=== PATIENT | female | born 1960 | race American Indian/Alaskan Native ===

== ENCOUNTER 2017-06-28 10:46 | Emergency (ER) | payer SELFPAY ==
[2017-06-28] MEDS ORDERED: DUONEB *Not for PRN Use IH ONE (11:08)
--- NOTE | 2017-06-28 11:54 | XRay Report ---
CHEST 2 VIEWS INDICATION: Cough, wheezing. COMPARISON: None similar at this institution. FINDINGS: PA and lateral chest radiographs demonstrate normal cardiomediastinal silhouette. Well-expanded lungs without pleural effusions or CHF. Slight right lower lung haziness felt related to overlying breast shadow. Intact bones. CONCLUSION: No acute disease in the chest. Thank you for the opportunity to participate in this patient's care.
[2017-06-28] MEDS ORDERED: TESSALON PERLES PO ONE (12:31)
[2017-06-28] MEDS ORDERED: ZESTRIL PO ONE (12:51)
--- NOTE | 2017-06-28 12:57 | Emergency Department Report ---
- General Chief Complaint: Upper Respiratory Infection Stated Complaint: COUGHING, WHEEZING Time Seen by Provider: 06/28/17 11:25 Source: patient Mode of arrival: Ambulatory Limitations: No Limitations - History of Present Illness Initial Comments: This is a 56-year-old female nontoxic, well nourished in appearance, no acute signs of distress presents to the ED with c/o of productive cough, wheezing, and rhinorrhea x1 week. Patient describers productive cough as green mucus production. She denies any sick contacts. Patient also states she has subjective fever but has not taken temperature. Patient denies any nausea, vomiting, chills, chest pain, shortness of breath, difficult breathing, numbness , tingling, headache, stiff neck or abdominal pain. Patient also states she has history of hypertension that she is out of her medication and has not had time to follow-up with her primary care doctor. Patient states she is requested for the lisinopril refill 20 mg daily. Patient also has a history of asthma and bronchitis. Patient states allergies to ibuprofen. MD Complaint: cough, rhinorrhea, nasal congestion, other (wheezing) -: week(s) (1) Severity: mild Severity scale (0 -10): 0 Consistency: constant Improves With: nothing Worsens With: nothing Associated Symptoms: fever, rhinorrhea, nasal congestion, cough. denies: chills , myalgias, diaphoresis, headache, sore throat, stiff neck, chest pain, shortness of breath, abdominal pain, nausea, vomiting, diarrhea, dysuria, rash, confusion, right sweats, weight loss, epistaxis, hoarseness, ear pain Treatments Prior to Arrival: none - Related Data Previous Rx's Medication Instructions Recorded Last Taken Type ALBUTEROL Inhaler [ProAir HFA 2 puff IH QID PRN #1 inhalation 06/28/17 Unknown Rx Inhaler] Azithromycin [Zithromax Z-RIVAS] 250 mg PO DAILY #6 tablet 06/28/17 Unknown Rx Benzonatate [Tessalon Perle] 100 mg PO Q8H #15 capsule 06/28/17 Unknown Rx Lisinopril 40 mg PO DAILY #5 tablet 06/28/17 Unknown Rx predniSONE [Deltasone] 40 mg PO QDAY #5 tab 06/28/17 Unknown Rx Allergies Allergy/AdvReac Type Severity Reaction Status Date / Time ibuprofen Allergy Bleeding Verified 06/28/17 10:52 ED Review of Systems ROS: Stated complaint: COUGHING, WHEEZING Other details as noted in HPI Constitutional: denies: chills, fever Eyes: denies: eye pain, eye discharge, vision change ENT: denies: ear pain, throat pain Respiratory: cough, wheezing. denies: shortness of breath Cardiovascular: denies: chest pain, palpitations Endocrine: no symptoms reported Gastrointestinal: denies: abdominal pain, nausea, diarrhea Genitourinary: denies: urgency, dysuria, discharge Musculoskeletal: denies: back pain, joint swelling, arthralgia Skin: denies: rash, lesions Neurological: denies: headache, weakness, paresthesias Psychiatric: denies: anxiety, depression Hematological/Lymphatic: denies: easy bleeding, easy bruising ED Past Medical Hx - Past Medical History Hx Hypertension: Yes Hx Asthma: Yes (BRONCHITIS) - Surgical History Hx Cholecystectomy: Yes - Social History Smoking Status: Never Smoker Substance Use Type: None - Medications Home Medications: Home Medications Medication Instructions Recorded Confirmed Last Taken Type ALBUTEROL Inhaler [ProAir HFA 2 puff IH QID PRN #1 inhalation 06/28/17 Unknown Rx Inhaler] Azithromycin [Zithromax Z-RIVAS] 250 mg PO DAILY #6 tablet 06/28/17 Unknown Rx Benzonatate [Tessalon Perle] 100 mg PO Q8H #15 capsule 06/28/17 Unknown Rx Lisinopril 40 mg PO DAILY #5 tablet 06/28/17 Unknown Rx predniSONE [Deltasone] 40 mg PO QDAY #5 tab 06/28/17 Unknown Rx ED Physical Exam - General Limitations: No Limitations General appearance: alert, in no apparent distress - Head Head exam: Present: atraumatic, normocephalic, normal inspection - Eye Eye exam: Present: normal appearance, PERRL, EOMI. Absent: scleral icterus, conjunctival injection, nystagmus, periorbital swelling, periorbital tenderness Pupils: Present: normal accommodation - ENT ENT exam: Present: normal exam, normal orophraynx, mucous membranes moist, TM's normal bilaterally, normal external ear exam - Neck Neck exam: Present: normal inspection, full ROM. Absent: tenderness, meningismus, lymphadenopathy, thyromegaly - Respiratory Respiratory exam: Present: normal lung sounds bilaterally, wheezes. Absent: respiratory distress, rales, rhonchi, stridor, chest wall tenderness, accessory muscle use, decreased breath sounds, prolonged expiratory - Cardiovascular Cardiovascular Exam: Present: regular rate, normal rhythm, normal heart sounds. Absent: bradycardia, tachycardia, irregular rhythm, systolic murmur, diastolic murmur, rubs, gallop - GI/Abdominal GI/Abdominal exam: Present: soft, normal bowel sounds. Absent: distended, tenderness, guarding, rebound, rigid, diminished bowel sounds - Rectal Rectal exam: Present: deferred - Extremities Exam Extremities exam: Present: normal inspection, full ROM, normal capillary refill. Absent: tenderness, pedal edema, joint swelling, calf tenderness - Back Exam Back exam: Present: normal inspection, full ROM. Absent: tenderness, CVA tenderness (R), CVA tenderness (L), muscle spasm, paraspinal tenderness, vertebral tenderness, rash noted - Neurological Exam Neurological exam: Present: alert, oriented X3, CN II-XII intact, normal gait, reflexes normal - Psychiatric Psychiatric exam: Present: normal affect, normal mood - Skin Skin exam: Present: warm, dry, intact, normal color. Absent: rash ED Course Vital Signs 06/28/17 10:53 Temperature 98.9 F Pulse Rate 72 Respiratory 22 Rate Blood Pressure 173/96 O2 Sat by Pulse 99 Oximetry - Reevaluation(s) Reevaluation #1: 06/28/17 13:03 Patient is speaking in full sentences with no signs of distress noted. ED Medical Decision Making - Medical Decision Making This is a 56-year-old female that presents with upper respiratory infection. Patient was examined by me and patient is stable. Patient received with patient 's symptoms of wheezing has subsided. Upon examination no auscultation of wheezing noted. Patient be treated with azithromycin. Patient also received Tessalon Perle. Patient also received a prescription for albuterol and lisinopril due to patient stating she is out of her medication. Patient was instructed to Follow-up with a primary care doctor in 3-5 days or if symptoms worsen and continue return to emergency room as soon as possible. At time time of discharge, the patient does not seem toxic or ill in appearance. No acute signs of distress noted. Patient agrees to discharge treatment plan of care. No further questions noted by the patient. Critical care attestation.: If time is entered above; I have spent that time in minutes in the direct care of this critically ill patient, excluding procedure time. ED Disposition Clinical Impression: Upper respiratory infection Qualifiers: URI type: unspecified URI Qualified Code(s): J06.9 - Acute upper respiratory infection, unspecified Hypertension Qualifiers: Hypertension type: unspecified Qualified Code(s): I10 - Essential (primary) hypertension Disposition: TO HOME OR SELFCARE Is pt being admited?: No Does the pt Need Aspirin: No Condition: Stable Instructions: Upper Respiratory Infection (ED), Albuterol (By breathing), Prednisone (By mouth), Lisinopril (By mouth), Hypertension (ED), Azithromycin ( By mouth) Additional Instructions: Follow-up with a primary care doctor in 3-5 days or if symptoms worsen and continue return to emergency room as soon as possible. Prescriptions: ALBUTEROL Inhaler [ProAir HFA Inhaler] 2 puff IH QID PRN #1 inhalation PRN Reason: Shortness Of Breath Azithromycin [Zithromax Z-RIVAS] 250 mg PO DAILY #6 tablet Benzonatate [Tessalon Perle] 100 mg PO Q8H #15 capsule Lisinopril 40 mg PO DAILY #5 tablet predniSONE [Deltasone] 40 mg PO QDAY #5 tab Referrals: PRIMARY CARE, [Primary Care Provider] - 3-5 Days HELEN CALL MD [Staff Physician] - 3-5 Days [facility] [Outside] - 3-5 Days [facility] [Outside] - 3-5 Days Forms: Work/School Release Form(ED)
[2017-06-28 13:24] VITALS: BP 180/107
== END 2017-06-28 13:43 | disposition home or self-care (01) ==
LOC: ED 10:46
DX: J06.9 Acute upper respiratory infection, unspecified (principal); I10 Essential (primary) hypertension; J45.909 Unspecified asthma, uncomplicated; Z90.49 Acquired absence of other specified parts of digestive tract; Z88.8 Allergy status to other drugs, medicaments and biological substances
CPT/HCPCS: 71020; 94640; 96372; 99283; J2930